=== PATIENT | male | born 1950 | race Caucasian/White ===

== ENCOUNTER 2022-07-26 12:51 | Outpatient (REF) | payer MEDICARE, SELFPAY ==
[2022-07-26 13:47] LABS: MANUAL DIFF FLAG NO
[2022-07-26 13:48] LABS: Basophils Absolute Auto 0.2 X10*3/uL (0.0-0.2); Basophils Percent Auto 2.2 % (0-2); Eosinophils Absolute Auto 0.3 X10*3/uL (0.0-0.4); Eosinophils Percent Auto 3.6 % (0-4); Hemoglobin 18.4 g/dl (14.0-18.0); Imm Gran Abs Auto 0.04 X10*3/uL (0.00-0.03); Imm Gran Pct Auto 0.4 % (0.0-0.4); Lymphocytes Absolute Auto 2.1 X10*3/uL (1.2-4.9); Lymphocytes Percent Auto 23.2 % (20-40); Mean Corpuscular HGB Conc 32.5 g/dl (31.0-36.0); Mean Corpuscular Hemoglobin 27.5 pg (27.0-33.0); Mean Corpuscular Volume 84.5 fL (80.0-98.0); Mean Platelet Volume 8.8 fL (9.4-12.4); Monocytes Absolute Auto 1.1 X10*3/uL (0.1-1.2); Monocytes Percent Auto 12.2 % (2-11); Neutrophils Absolute Auto 5.3 x10*3/uL (2.0-8.3); Neutrophils Percent Auto 58.4 % (45-73); Platelet Count 912 X10*3/uL (160-400); Red Cell Distribution Width 21.2 % (11.0-16.0); White Blood Count 9.1 X10*3/uL (4.8-10.8)
[2022-07-26 13:50] LABS: Hematocrit 56.6 % (42.0-52.0)
== END 2022-07-26 12:52 | disposition home or self-care (01) ==
LOC: HO.BBR 12:51
PROVIDERS: Visit Provider Internal Medicine Hematology & Oncology
DX: D45 Polycythemia vera (principal)
CPT/HCPCS: 36415; 85014; 85025; 99195

== ENCOUNTER 2022-08-10 12:56 | Outpatient (REF) | payer MEDICARE, SELFPAY | END 2022-08-10 12:57 | disposition home or self-care (01) | LOC: HO.BBR 12:56 | PROVIDERS: Visit Provider Internal Medicine Hematology & Oncology | DX: D45 Polycythemia vera (principal) | CPT/HCPCS: 85014; 99195 ==

== ENCOUNTER 2022-08-29 07:57 | Outpatient (REF) | payer MEDICARE, SELFPAY ==
[2022-08-29 08:12] LABS: MANUAL DIFF FLAG NO
[2022-08-29 08:15] LABS: Basophils Absolute Auto 0.2 X10*3/uL (0.0-0.2); Basophils Percent Auto 2.9 % (0-2); Eosinophils Absolute Auto 0.3 X10*3/uL (0.0-0.4); Eosinophils Percent Auto 4.2 % (0-4); Hematocrit 46.7 % (42.0-52.0); Hemoglobin 15.4 g/dl (14.0-18.0); Imm Gran Abs Auto 0.03 X10*3/uL (0.00-0.03); Imm Gran Pct Auto 0.4 % (0.0-0.4); Lymphocytes Absolute Auto 2.2 X10*3/uL (1.2-4.9); Lymphocytes Percent Auto 27.5 % (20-40); Mean Corpuscular Hemoglobin 29.7 pg (27.0-33.0); Mean Corpuscular Volume 90.2 fL (80.0-98.0); Mean Platelet Volume 8.8 fL (9.4-12.4); Monocytes Absolute Auto 1.1 X10*3/uL (0.1-1.2); Monocytes Percent Auto 13.9 % (2-11); Neutrophils Absolute Auto 4.1 x10*3/uL (2.0-8.3); Neutrophils Percent Auto 51.1 % (45-73); Platelet Count 838 X10*3/uL (160-400); Red Blood Count 5.18 X10*6/uL (4.60-5.80); Red Cell Distribution Width 22.2 % (11.0-16.0); White Blood Count 8.1 X10*3/uL (4.8-10.8)
== END 2022-08-29 07:58 | disposition home or self-care (01) ==
LOC: HO.BBR 07:57
PROVIDERS: Visit Provider Internal Medicine Hematology & Oncology
DX: D45 Polycythemia vera (principal)
CPT/HCPCS: 36415; 85014; 85018; 85025; 99195

== ENCOUNTER 2022-09-12 12:59 | Outpatient (REF) | payer MEDICARE, SELFPAY ==
[2022-09-12 15:24] LABS: Hematocrit 43.9 % (42.0-52.0); Hemoglobin 14.5 g/dl (14.0-18.0); Mean Corpuscular Hemoglobin 30.7 pg (27.0-33.0); Mean Platelet Volume 8.7 fL (9.4-12.4); NRBC Pct Auto 0.2 /100WBC (0.0-0.2); Red Blood Count 4.72 X10*6/uL (4.60-5.80); Red Cell Distribution Width 22.5 % (11.0-16.0); White Blood Count 9.9 X10*3/uL (4.8-10.8)
[2022-09-12 15:25] LABS: Platelet Count 1031 X10*3/uL (160-400)
== END 2022-09-12 13:00 | disposition home or self-care (01) ==
LOC: HO.BBR 12:59
PROVIDERS: Visit Provider Internal Medicine Hematology & Oncology
DX: D45 Polycythemia vera (principal)
CPT/HCPCS: 36415; 85014; 85027

== ENCOUNTER 2022-09-26 13:08 | Outpatient (REF) | payer MEDICARE, SELFPAY ==
[2022-09-26 13:18] LABS: MANUAL DIFF FLAG NO
[2022-09-26 13:20] LABS: Basophils Absolute Auto 0.2 X10*3/uL (0.0-0.2); Eosinophils Absolute Auto 0.4 X10*3/uL (0.0-0.4); Eosinophils Percent Auto 3.9 % (0-4); Hematocrit 44.9 % (42.0-52.0); Hemoglobin 14.9 g/dl (14.0-18.0); Imm Gran Abs Auto 0.03 X10*3/uL (0.00-0.03); Imm Gran Pct Auto 0.3 % (0.0-0.4); Lymphocytes Absolute Auto 2.9 X10*3/uL (1.2-4.9); Lymphocytes Percent Auto 31.8 % (20-40); Mean Corpuscular HGB Conc 33.2 g/dl (31.0-36.0); Mean Corpuscular Hemoglobin 31.6 pg (27.0-33.0); Mean Corpuscular Volume 95.1 fL (80.0-98.0); Mean Platelet Volume 8.6 fL (9.4-12.4); Monocytes Absolute Auto 1.3 X10*3/uL (0.1-1.2); Monocytes Percent Auto 14.4 % (2-11); Neutrophils Absolute Auto 4.3 x10*3/uL (2.0-8.3); Neutrophils Percent Auto 47.6 % (45-73); Platelet Count 790 X10*3/uL (160-400); Red Blood Count 4.72 X10*6/uL (4.60-5.80); Red Cell Distribution Width 21.1 % (11.0-16.0); White Blood Count 9.1 X10*3/uL (4.8-10.8)
== END 2022-09-26 13:09 | disposition home or self-care (01) ==
LOC: HO.BBR 13:08
PROVIDERS: Visit Provider Internal Medicine Hematology & Oncology
DX: D45 Polycythemia vera (principal)
CPT/HCPCS: 36415; 85025

== ENCOUNTER 2022-11-01 08:58 | Outpatient (REF) | payer MEDICARE, SELFPAY ==
[2022-11-01 09:19] LABS: Basophils Absolute Auto 0.2 X10*3/uL (0.0-0.2); Basophils Percent Auto 3.1 % (0-2); Eosinophils Absolute Auto 0.3 X10*3/uL (0.0-0.4); Eosinophils Percent Auto 4.4 % (0-4); Hematocrit 46.4 % (42.0-52.0); Hemoglobin 15.3 g/dl (14.0-18.0); Imm Gran Abs Auto 0.03 X10*3/uL (0.00-0.03); Imm Gran Pct Auto 0.4 % (0.0-0.4); Lymphocytes Percent Auto 27.2 % (20-40); MANUAL DIFF FLAG SCAN; Mean Corpuscular Hemoglobin 32.2 pg (27.0-33.0); Mean Corpuscular Volume 97.7 fL (80.0-98.0); Monocytes Percent Auto 13.1 % (2-11); Neutrophils Absolute Auto 3.8 x10*3/uL (2.0-8.3); Neutrophils Percent Auto 51.8 % (45-73); Platelet Count 810 X10*3/uL (160-400); Red Blood Count 4.75 X10*6/uL (4.60-5.80); Red Cell Distribution Width 15.9 % (11.0-16.0); SCAN SMEAR FLAG 1; White Blood Count 7.3 X10*3/uL (4.8-10.8)
[2022-11-01 10:19] LABS: SLIDE REVIEW VERIFIED
== END 2022-11-01 08:59 | disposition home or self-care (01) ==
LOC: HO.BBR 08:58
PROVIDERS: Visit Provider Internal Medicine Hematology & Oncology
DX: D45 Polycythemia vera (principal)
CPT/HCPCS: 36415; 85014; 85018; 85025; 99195

== ENCOUNTER 2022-11-15 09:01 | Outpatient (REF) | payer MEDICARE, SELFPAY | END 2022-11-15 09:02 | disposition home or self-care (01) | LOC: HO.BBR 09:01 | PROVIDERS: Visit Provider Internal Medicine Hematology & Oncology | DX: D45 Polycythemia vera (principal) | CPT/HCPCS: 85014 ==

== ENCOUNTER 2022-11-29 09:00 | Outpatient (REF) | payer MEDICARE, SELFPAY | END 2022-11-29 09:01 | disposition home or self-care (01) | LOC: HO.BBR 09:00 | PROVIDERS: Visit Provider Internal Medicine Hematology & Oncology | DX: D45 Polycythemia vera (principal) | CPT/HCPCS: 36415; 85014; 85018; 85025; 99195 ==

== ENCOUNTER 2022-12-28 13:00 | Outpatient (REF) | payer MEDICARE, SELFPAY | END 2022-12-28 13:01 | disposition home or self-care (01) | LOC: HO.BBR 13:00 | PROVIDERS: Visit Provider Internal Medicine Hematology & Oncology | DX: D45 Polycythemia vera (principal) | CPT/HCPCS: 85014; 85018; 99195 ==

== ENCOUNTER 2023-01-25 12:58 | Outpatient (REF) | payer MEDICARE, SELFPAY | END 2023-01-25 12:59 | disposition home or self-care (01) | LOC: HO.BBR 12:58 | PROVIDERS: Visit Provider Internal Medicine Hematology & Oncology | DX: D45 Polycythemia vera (principal) | CPT/HCPCS: 85014 ==

== ENCOUNTER 2023-02-23 12:59 | Outpatient (REF) | payer MEDICARE, SELFPAY | END 2023-02-23 13:00 | disposition home or self-care (01) | LOC: HO.BBR 12:59 | PROVIDERS: Visit Provider Internal Medicine Hematology & Oncology | DX: D45 Polycythemia vera (principal) | CPT/HCPCS: 85014 ==

== ENCOUNTER 2023-03-28 14:05 | Outpatient (REF) | payer MEDICARE, SELFPAY | END 2023-03-28 14:06 | disposition home or self-care (01) | LOC: HO.BBR 14:05 | PROVIDERS: Visit Provider Internal Medicine Hematology & Oncology | DX: D45 Polycythemia vera (principal) | CPT/HCPCS: 85014; 85018; 99195 ==

== ENCOUNTER 2023-05-31 12:59 | Outpatient (REF) | payer MEDICARE, SELFPAY ==
[2023-05-31 13:15] LABS: MANUAL DIFF FLAG NO
[2023-05-31 13:16] LABS: Basophils Absolute Auto 0.2 X10*3/uL (0.0-0.2); Basophils Percent Auto 1.3 % (0-2); Eosinophils Absolute Auto 0.5 X10*3/uL (0.0-0.4); Eosinophils Percent Auto 3.6 % (0-4); Hematocrit 47.7 % (42.0-52.0); Hemoglobin 15.8 g/dl (14.0-18.0); Imm Gran Abs Auto 0.09 X10*3/uL (0.00-0.03); Imm Gran Pct Auto 0.7 % (0.0-0.4); Lymphocytes Percent Auto 23.9 % (20-40); Mean Corpuscular HGB Conc 33.1 g/dl (31.0-36.0); Mean Corpuscular Hemoglobin 31.5 pg (27.0-33.0); Mean Corpuscular Volume 95.2 fL (80.0-98.0); Mean Platelet Volume 8.9 fL (9.4-12.4); Monocytes Absolute Auto 1.5 X10*3/uL (0.1-1.2); Monocytes Percent Auto 11.7 % (2-11); Neutrophils Absolute Auto 7.4 x10*3/uL (2.0-8.3); Neutrophils Percent Auto 58.8 % (45-73); Red Blood Count 5.01 X10*6/uL (4.60-5.80); Red Cell Distribution Width 14.7 % (11.0-16.0); White Blood Count 12.6 X10*3/uL (4.8-10.8)
[2023-05-31 13:32] LABS: Platelet Count 1262 X10*3/uL (160-400)
== END 2023-05-31 13:00 | disposition home or self-care (01) ==
LOC: HO.BBR 12:59
PROVIDERS: Visit Provider Internal Medicine Hematology & Oncology
DX: D45 Polycythemia vera (principal)
CPT/HCPCS: 36415; 85014; 85018; 85025; 99195

== ENCOUNTER 2023-08-02 13:02 | Outpatient (REF) | payer MEDICARE, SELFPAY ==
[2023-08-02 13:20] LABS: Basophils Absolute Auto 0.2 X10*3/uL (0.0-0.2); Basophils Percent Auto 1.3 % (0-2); Eosinophils Absolute Auto 0.5 X10*3/uL (0.0-0.4); Eosinophils Percent Auto 3.6 % (0-4); Hematocrit 48.4 % (42.0-52.0); Imm Gran Abs Auto 0.11 X10*3/uL (0.00-0.03); Imm Gran Pct Auto 0.8 % (0.0-0.4); Lymphocytes Absolute Auto 2.7 X10*3/uL (1.2-4.9); Lymphocytes Percent Auto 20.3 % (20-40); MANUAL DIFF FLAG SCAN; Mean Corpuscular Volume 80.8 fL (80.0-98.0); Mean Platelet Volume 8.8 fL (9.4-12.4); Monocytes Absolute Auto 1.7 X10*3/uL (0.1-1.2); Monocytes Percent Auto 12.3 % (2-11); Neutrophils Absolute Auto 8.3 x10*3/uL (2.0-8.3); Neutrophils Percent Auto 61.7 % (45-73); Red Blood Count 5.99 X10*6/uL (4.60-5.80); Red Cell Distribution Width 18.6 % (11.0-16.0); SCAN SMEAR FLAG 1; White Blood Count 13.4 X10*3/uL (4.8-10.8)
[2023-08-02 13:35] LABS: Platelet Count 1370 X10*3/uL (160-400)
[2023-08-02 13:59] LABS: SLIDE REVIEW VERIFIED
== END 2023-08-02 13:03 | disposition home or self-care (01) ==
LOC: HO.BBR 13:02
PROVIDERS: Visit Provider Internal Medicine Hematology & Oncology
DX: D45 Polycythemia vera (principal)
CPT/HCPCS: 36415; 85025; 99195

== ENCOUNTER 2023-10-02 13:01 | Outpatient (REF) | payer MEDICARE, SELFPAY ==
[2023-10-02 13:17] LABS: Basophils Absolute Auto 0.1 X10*3/uL (0.0-0.2); Basophils Percent Auto 1.7 % (0-2); Eosinophils Absolute Auto 0.3 X10*3/uL (0.0-0.4); Eosinophils Percent Auto 3.4 % (0-4); Hematocrit 43.2 % (42.0-52.0); Hemoglobin 13.7 g/dl (14.0-18.0); Imm Gran Abs Auto 0.07 X10*3/uL (0.00-0.03); Imm Gran Pct Auto 0.9 % (0.0-0.4); Lymphocytes Absolute Auto 2.5 X10*3/uL (1.2-4.9); Lymphocytes Percent Auto 29.8 % (20-40); MANUAL DIFF FLAG NO; Mean Corpuscular HGB Conc 31.7 g/dl (31.0-36.0); Mean Corpuscular Hemoglobin 23.5 pg (27.0-33.0); Mean Corpuscular Volume 74.2 fL (80.0-98.0); Mean Platelet Volume 8.9 fL (9.4-12.4); Monocytes Percent Auto 12.3 % (2-11); Neutrophils Absolute Auto 4.3 x10*3/uL (2.0-8.3); Neutrophils Percent Auto 51.9 % (45-73); Platelet Count 892 X10*3/uL (160-400); Red Blood Count 5.82 X10*6/uL (4.60-5.80); Red Cell Distribution Width 19.5 % (11.0-16.0); White Blood Count 8.2 X10*3/uL (4.8-10.8)
== END 2023-10-02 13:02 | disposition home or self-care (01) ==
LOC: HO.BBR 13:01
PROVIDERS: Visit Provider Internal Medicine Hematology & Oncology
DX: D45 Polycythemia vera (principal)
CPT/HCPCS: 36415; 85014; 85025

== ENCOUNTER 2024-01-23 13:01 | Outpatient (REF) | payer MEDICARE, SELFPAY | END 2024-01-23 13:02 | disposition home or self-care (01) | LOC: HO.BBR 13:01 | PROVIDERS: Visit Provider Internal Medicine Hematology & Oncology | DX: Z13.89 Encounter for screening for other disorder (principal) | CPT/HCPCS: 99195 ==